=== PATIENT | female | born 1940 | race Caucasian/White ===

== ENCOUNTER 2023-09-18 15:14 | Emergency (ER) | payer SELFPAY ==
[~2023-09-18] VITALS: Ht 160 cm; Wt 63.5 kg
[2023-09-18 15:16] VITALS: BP 154/78; TEMP 98.2; O2SAT 98
== END 2023-09-18 15:39 | disposition left against medical advice (07) ==
LOC: ER 15:16
DX: R10.9 Unspecified abdominal pain (principal); K59.00 Constipation, unspecified; I10 Essential (primary) hypertension; Z88.8 Allergy status to other drugs, medicaments and biological substances